=== PATIENT | male | born 1990 | race African-American/Black ===

== ENCOUNTER 2018-02-22 08:21 | Emergency (ER) | payer SELFPAY ==
--- NOTE | 2018-02-22 08:48 | ER ---
Nurse's Notes [facility] Name: Jasper Wilder Age: 27 yrs Sex: Male : 1990 Arrival Date: 02/22/2018 Time: 08:24 Bed 6 Private MD: None, None Diagnosis: Headache;Left Forehead swelling (> 1 year) Presentation: 02/22 08:31 Presenting complaint: Patient states: intermittent headaches x 3 days. Pt is concerned ss that the lipoma on his forehead may be causing them. Transition of care: patient was not received from another setting of care. Onset of symptoms was February 18, 2018. Risk Assessment: Do you want to hurt yourself or someone else? Patient reports no desire to harm self or others. Initial Sepsis Screen: Does the patient meet any 2 criteria? No. Patient's initial sepsis screen is negative. Does the patient have a suspected source of infection? No. Patient's initial sepsis screen is negative. Note Pt believe that pain is improved with Advil, which he last took a dose yesterday. Care prior to arrival: None. 08:31 Method Of Arrival: Ambulatory ss 08:31 Acuity: MANI 5 ss Triage Assessment: 08:54 Headache History: The patient has had previous headaches and this one is similar to ae1 previous episodes. General: Appears in no apparent distress. Pain: Pain began gradually, Also complains of. Historical: - Allergies: 08:33 No Known Allergies; ss - Home Meds: 08:33 None [Active]; ss - PMHx: 08:33 None; ss - PSHx: 08:33 None; ss - Immunization history:: Adult Immunizations up to date. - Social history:: Smoking status: Patient/guardian denies using tobacco. - Ebola Screening: : Patient denies exposure to infectious person Patient denies travel to an Ebola-affected area in the 21 days before illness onset. Screenin:40 Abuse screen: Denies threats or abuse. Denies injuries from another. Nutritional iw screening: No deficits noted. Tuberculosis screening: No symptoms or risk factors identified. Fall Risk None identified. Assessment: 08:39 General: Appears in no apparent distress. Behavior is calm, cooperative. Pain: iw Complains of pain in head Pain currently is 7 out of 10 on a pain scale. Neuro: Level of Consciousness is awake, alert, obeys commands, Oriented to person, place, time, situation, Moves all extremities. Full function. Cardiovascular: Patient's skin is warm and dry. Respiratory: Respiratory effort is even, unlabored, Respiratory pattern is regular, symmetrical. Derm: Skin is pink, warm \T\ dry. normal. Musculoskeletal: Range of motion: intact in all extremities. Vital Signs: 08:33 BP 109 / 67; Pulse 79; Resp 16; Temp 98.2(TE); Pulse Ox 96% on R/A; Weight 68.04 kg; ss Height 5 ft. 4 in. (162.56 cm); Pain 7/10; 08:33 Body Mass Index 25.75 (68.04 kg, 162.56 cm) ss ED Course: 08:24 Patient arrived in ED. mr 08:24 None, None is Private Physician. mr 08:25 Ritesh Page MD is Attending Physician. kdr 08:31 Chana Bacon, RN is Primary Nurse. iw 08:32 Triage completed. ss 08:33 Arm band placed on right wrist. ss 08:40 Bed in low position. Call light in reach. Side rails up X 1. Pulse ox on. NIBP on. ae1 08:54 No provider procedures requiring assistance completed. Patient did not have IV access ae1 during this emergency room visit. Administered Medications: 08:34 CANCELLED (Physician Discretion): Zofran 4 mg IVP once; over 2 minutes ss 08:34 CANCELLED (Physician Discretion): Cipro 500 mg PO once ss 08:34 CANCELLED (Physician Discretion): Flagyl 500 mg PO once ss 08:35 CANCELLED (Physician Discretion): NS 0.9% 1000 ml IV at 1 bolus Per protocol; 1000 mL ss bolus Outcome: 08:47 Discharge ordered by . kdr 08:55 Discharged to home ambulatory. ae1 08:55 Condition: stable 08:55 Discharge instructions given to patient, Instructed on discharge instructions, follow up and referral plans. Demonstrated understanding of instructions. 08:55 Patient left the ED. ae1 Signatures: Ritesh Page MD MD [facility] Jyotsna Cruz mr Chana Bacon, RN PHYLLIS Leny Paul RN RN Ankur Carrillo RN RN ae1
--- NOTE | 2018-02-22 08:48 | EDPHYS ---
Physician Documentation [facility] Name: Jasper Wilder Age: 27 yrs Sex: Male : 1990 Arrival Date: 02/22/2018 Time: 08:24 Bed 6 Private MD: None, None ED Physician Ritesh Page HPI: 02/22 08:48 This 27 yrs old Black Male presents to ER via Ambulatory with complaints of Headache. kdr 08:48 The patient complains of pain to the forehead. The patient describes the headache as kdr aching, intermittent, waxing and waning. Associated signs and symptoms: The patient has no apparent associated signs or symptoms. Severity of symptoms: At its worst the pain was mild, in the emergency department the pain has resolved, Last night. Headache History: The patient has had previous headaches and this one is similar to previous episodes. The symptoms are alleviated by over the counter pain medication, the symptoms are aggravated by nothing. The patient has experienced similar episodes in the past, multiple times, chronically. The patient has not recently seen a physician. Historical: - Allergies: 08:33 No Known Allergies; ss - Home Meds: 08:33 None [Active]; ss - PMHx: 08:33 None; ss - PSHx: 08:33 None; ss - Immunization history:: Adult Immunizations up to date. - Social history:: Smoking status: Patient/guardian denies using tobacco. - Ebola Screening: : Patient denies exposure to infectious person Patient denies travel to an Ebola-affected area in the 21 days before illness onset. ROS: 08:48 Constitutional: Negative for fever, chills, and weight loss, Eyes: Negative for injury, kdr pain, redness, and discharge, ENT: Negative for injury, pain, and discharge, Neck: Negative for injury, pain, and swelling, Cardiovascular: Negative for chest pain, palpitations, and edema, Respiratory: Negative for shortness of breath, cough, wheezing, and pleuritic chest pain, Abdomen/GI: Negative for abdominal pain, nausea, vomiting, diarrhea, and constipation, Back: Negative for injury and pain, : Negative for injury, bleeding, discharge, and swelling, MS/Extremity: Negative for injury and deformity, Skin: Negative for injury, rash, and discoloration, Psych: Negative for depression, anxiety, suicide ideation, homicidal ideation, and hallucinations, Allergy/Immunology: Negative for hives, rash, and allergies, Endocrine: Negative for neck swelling, polydipsia, polyuria, polyphagia, and marked weight changes, Hematologic/Lymphatic: Negative for swollen nodes, abnormal bleeding, and unusual bruising. 08:48 Neuro: Positive for headache, Negative for altered mental status, dizziness, gait disturbance, numbness, seizure activity, speech changes, syncope, near syncope, tingling, tinnitus, tremor, visual changes, weakness, acute changes. Exam: 08:48 Constitutional: This is a well developed, well nourished patient who is awake, alert, kdr and in no acute distress. Head/Face: Normocephalic, atraumatic. Eyes: Pupils equal round and reactive to light, extra-ocular motions intact. Lids and lashes normal. Conjunctiva and sclera are non-icteric and not injected. Cornea within normal limits. Periorbital areas with no swelling, redness, or edema. Neck: Trachea midline, no thyromegaly or masses palpated, and no cervical lymphadenopathy. Supple, full range of motion without nuchal rigidity, or vertebral point tenderness. No Meningismus. Chest/axilla: Normal chest wall appearance and motion. Nontender with no deformity. No lesions are appreciated. Cardiovascular: Regular rate and rhythm with a normal S1 and S2. No gallops, murmurs, or rubs. Normal PMI, no JVD. No pulse deficits. Respiratory: Lungs have equal breath sounds bilaterally, clear to auscultation and percussion. No rales, rhonchi or wheezes noted. No increased work of breathing, no retractions or nasal flaring. Abdomen/GI: Soft, non-tender, with normal bowel sounds. No distension or tympany. No guarding or rebound. No evidence of tenderness throughout. Back: No spinal tenderness. No costovertebral tenderness. Full range of motion. Skin: Warm, dry with normal turgor. Normal color with no rashes, no lesions, and no evidence of cellulitis. MS/ Extremity: Pulses equal, no cyanosis. Neurovascular intact. Full, normal range of motion. Neuro: Awake and alert, GCS 15, oriented to person, place, time, and situation. Cranial nerves II-XII grossly intact. Motor strength 5/5 in all extremities. Sensory grossly intact. Cerebellar exam normal. Normal gait. Psych: Awake, alert, with orientation to person, place and time. Behavior, mood, and affect are within normal limits. Vital Signs: 08:33 BP 109 / 67; Pulse 79; Resp 16; Temp 98.2(TE); Pulse Ox 96% on R/A; Weight 68.04 kg; ss Height 5 ft. 4 in. (162.56 cm); Pain 7/10; 08:33 Body Mass Index 25.75 (68.04 kg, 162.56 cm) ss MDM: 08:47 Patient medically screened. kdr 08:48 Data reviewed: vital signs, nurses notes. Counseling: I had a detailed discussion with kdr the patient and/or guardian regarding: the historical points, exam findings, and any diagnostic results supporting the discharge/admit diagnosis, the need for outpatient follow up. Administered Medications: 08:34 CANCELLED (Physician Discretion): Zofran 4 mg IVP once; over 2 minutes ss 08:34 CANCELLED (Physician Discretion): Cipro 500 mg PO once ss 08:34 CANCELLED (Physician Discretion): Flagyl 500 mg PO once ss 08:35 CANCELLED (Physician Discretion): NS 0.9% 1000 ml IV at 1 bolus Per protocol; 1000 mL ss bolus Disposition: 02/22/18 08:47 Discharged to Home. Impression: Headache, Left Forehead swelling (> 1 year). - Condition is Stable. - Discharge Instructions: General Headache Without Cause. - Medication Reconciliation Form, Thank You Letter, Work release form form. - Follow up: Private Physician; When: 2 - 3 days; Reason: If symptoms return, Further diagnostic work-up, Recheck today's complaints, Continuance of care, Re-evaluation by your physician. - Problem is new. - Symptoms have improved. Signatures: Dispatcher [employer] EDMS Ritesh Page MD MD [facility] Leny Paul RN RN Ankur Carrillo RN RN ae1 Corrections: (The following items were deleted from the chart) 08:34 08:32 Zofran 4 mg IVP once; over 2 minutes ordered. kdr 08:34 08:32 Cipro 500 mg PO once ordered. kdr ss 08:34 08:32 Flagyl 500 mg PO once ordered. kdr ss 08:35 08:32 IV Saline Lock ordered. kdr ss 08:35 08:32 Labs collected and sent ordered. kdr ss 08:35 08:32 Urine Dipstick-Ancillary ordered. kdr ss 08:35 08:32 NS 0.9% 1000 ml IV at 1 bolus Per protocol; 1000 mL bolus ordered. kdr ss 08:38 08:32 BASIC METABOLIC PANEL+C.LAB.BRZ ordered. EDMS EDMS 08:38 08:32 CBC+H.LAB.BRZ ordered. EDMS EDMS 08:38 08:32 Creatinine for Radiology+C.LAB.BRZ ordered. EDMS EDMS 08:38 08:32 HEPATIC FUNCTION+C.LAB.BRZ ordered. EDMS EDMS 08:38 08:32 LIPASE+C.LAB.BRZ ordered. EDMS EDMS 08:38 08:32 UA MICROSCOPIC+U.LAB.BRZ ordered. EDMS EDMS 08:55 08:47 02/22/2018 08:47 Discharged to Home. Impression: Headache; Left Forehead swelling ae1 (> 1 year). Condition is Stable. Forms are Medication Reconciliation Form, Thank You Letter, Antibiotic Education, Prescription Opioid Use. Follow up: Private Physician; When: 2 - 3 days; Reason: If symptoms return, Further diagnostic work-up, Recheck today's complaints, Continuance of care, Re-evaluation by your physician. Problem is new. Symptoms have improved. kdr
== END 2018-02-22 08:55 | disposition home or self-care (01) ==
LOC: ER 08:21
DX: R51 Headache (principal); R22.0 Localized swelling, mass and lump, head
CPT/HCPCS: 99283